=== PATIENT | male | born 1975 | race Caucasian/White ===

== ENCOUNTER 2017-01-19 07:20 | Inpatient (IN) | payer OTHER ==
[~2017-01-19] VITALS: Ht 185.4 cm; Wt 95.2 kg
--- NOTE | 2017-01-19 07:35 | NUR ---
DR ROGERS AT BEDSIDE FOR MSE.
--- NOTE | 2017-01-19 07:38 | NUR ---
PT PRESENTS TO ER WITH BILATERAL LOWER QUADRANT ABD PAIN THAT BEGAN LAST NIGHT NIGHT APPROX 2200. PT DENIES ANY OTHER SYMPTOMS AT THIS TIME. PT ALERT AND AWAKE, ORIENTED X 4, BREATHING EVEN AND UNLABORED. NO DISTRESS NOTED AT THIS TIME. CALL LIGHT PLACED WITHIN REACH.
--- NOTE | 2017-01-19 07:41 | NUR ---
LEAD ANDROID DEVELOPER AT BEDSIDE.
[2017-01-19 07:57] LABS: BASOPHIL % 0.3 % (0-2); PLATELET COUNT 197 x10^3mcL (130-400); RED CELL DISTRIBUTION WIDTH 12.9 % (11.5-14.5)
[2017-01-19 08:02] LABS: CALCIUM 8.8 mg/dL (8.5-10.1); CARBON DIOXIDE 26.7 mmol/L (21-32); CHLORIDE SERUM 103 mmol/L (98-107); CREATININE SERUM 1.2 mg/dL (0.7-1.3); GFR1 > 60 mL/min; GLUCOSE SERUM 95 mg/dL (74-106); POTASSIUM SERUM 3.8 mmol/L (3.5-5.1); SODIUM SERUM 138 mmol/L (136-145)
[2017-01-19 08:06] LABS: ALBUMIN 3.8 g/dL (3.4-5.0); ALKALINE PHOSPHATASE 97 U/L (46-116); ALT/SGPT 22 U/L (16-63); AMYLASE 80 U/L (25-115); AST/SGOT 20 U/L (15-37); BILIRUBIN TOTAL 0.67 mg/dL (0.20-1.00); LIPASE 110 IU/L (73-393); TOTAL PROTEIN, SERUM 7.6 g/dL (6.4-8.2)
--- NOTE | 2017-01-19 08:10 | NUR ---
PT GIVEN IV MEDS PER DR ROGERS ORDERS. PT EDUCATED ON MEDS AND VERBALIZES UNDERSTANDING OF TEACHING. PT DENIES ANY ALLERGIES TO MEDS. PT ALERT AND AWAKE, TALKING TO AND FRIEND AT BEDSIDE. BREATHING EVEN AND UNLABORED NO DISTRESS NOTED AT THIS TIME.
[2017-01-19 08:12] LABS: UA SPECIFIC GRAVITY 1.025 (1.005-1.035); microscopic required? YES; urine erythrocyte TRACE (NEGATIVE)
--- NOTE | 2017-01-19 08:15 | NUR ---
PT PICKED UP BY EMPLOYEE BENEFITS COORDINATOR [facility]IA [place]. NO DISTRESS NOTED AT THIS TIME.
--- NOTE | 2017-01-19 08:27 | NUR ---
PT BROUGHT BACK TO [facility] [place] BY [employer]. VISIBLE CHEST RISE WITH INHALATION. NO DISTRESS NOTED AT THIS TIME.
[2017-01-19] MEDS ORDERED: LIPI20 PO (08:44)
--- NOTE | 2017-01-19 09:02 | NUR ---
DR ROGERS AT BEDSIDE DISCUSSING PLAN OF CARE
--- NOTE | 2017-01-19 09:14 | NUR ---
PT GIVEN IV ANTIBIOTIC PER DR ROGERS ORDERS. PT EDUCATED ON MED AND VERBALIZES UNDERSTANDING OF MED. PT DENIES ANY ALLERGIES TO MED. PT ALERT AND AWAKE, BREATHING EVEN AND UNLABORED NO DISTRESS NOTED AT THIS TIME.
--- NOTE | 2017-01-19 09:36 | NUR ---
DAWSON MA CALLED AT EXT [phone]. FRANCESCA ANSWERED BUT CALL WAS DROPPED. AWAITING CALL BACK.
--- NOTE | 2017-01-19 09:44 | NUR ---
FRANCESCA EXT [phone] RETURNED CALL. REPORT GIVEN TO CONTINUE CARE.
[2017-01-19 10:24] LABS: T3 TOTAL 0.99 ng/mL
[2017-01-19 10:26] LABS: FREE T4 1.09 ng/dL (0.76-1.46); T4(THYROXINE) 8.4 ug/dL (4.7-13.3)
--- NOTE | 2017-01-19 10:40 | NUR ---
PT GIVEN MEDS PER DR ROGERS ORDERS. PT EDUCATED ON MEDS AND VERBALIZES UNDERSTANDING OF TEACHING. PT DENIES ANY ALLERGIES TO MED. PT ALERT AND AWAKE, ORIENTED X 4. PT TALKING TO AT BEDSIDE. NO DISTRESS NOTED AT THIS TIME.
--- NOTE | 2017-01-19 10:45 | NUR ---
FRANCESCA RN EXT [id number] CALLED TO UPDATE ON PT STATUS
[2017-01-19 11:04] VITALS: BP 128/69
--- NOTE | 2017-01-19 11:05 | NUR ---
ADMITTED PT FROM ED DX APPY. PT IS A/A/OX4 DENIES PROCTOR. RESP EVEN AND UNLABORED WITH CLEAR BS BILAT. PLACED ON TELE #10 SHOWING SB HR 58. DENIES ANY CP/PRESSURE AT THIS TIME. NO EDEMA NOTED WITH IV TO RAC INFUSING LEVAQUIN. ABD SOFT, TENDER TO TOUCH WITH ACTIVE BS X4. PAIN AT 6-7/10, DECREASING. VOIDING FREELY. AMBULATORY, WITH LIMITED ROM TO RT SHOULDER FROM PRIRO INJURY. ORIENTED TO ROOM AND CALL LIGHT SYSTEM. CALL LIGHT IN REACH. AT BEDSIDE.
--- NOTE | 2017-01-19 12:10 | NUR ---
PT C/O PAIN /10 MEDICATED WITH MORPHINE IVP ORDERED. WILL CONT TO MONITOR.
--- NOTE | 2017-01-19 12:25 | NUR ---
REPORT GIVEN TO GUSTAVO OSMAN IN OR MADE AWARE PT PREP FOR SX, CONSENTS NOT SIGNED PT HAS NOT SPOKE WITH SURGEON. PER OR NURSE PT WILL BE TAKEN DOWN TO OR HOLDING AREA AND WILL BE CONSENT THERE IF OK WITH PT. SPOKE WITH PT AGREABLE TO BE CONSENT IN OR DEPARTMENT. CHLROHEXIN WIPES GIVEN TO PT FOR PREOP PREP. WILL CONT TO MONITOR.
--- NOTE | 2017-01-19 12:42 | NUR ---
PT TAKEN DOWN TO OR FOR PROCEDURE. WILL CONT TO MONITOR.
--- NOTE | 2017-01-19 15:33 | NUR ---
PT BACK FROM OR S/P LAP APPY. PT A/A/OX4 REPORTS FEELING COMFORTABLE. DENIES ANY N/V AT THIS TIME. SX SITES X3 WITH DERMABOND IN PLACE. RESUMED IVF ORDERED. AT BEDSIDE. CALL LIGHT IN REACH NEEDS ATTENDED TO.
--- NOTE | 2017-01-19 23:30 | NUR ---
PT C/O ABD PAIN. GAVE PT MORPHINE IVP. PT TOLERATED IT WELL. WILL CONTINUE TO MONITOR.
--- NOTE | 2017-01-20 06:44 | NUR ---
PT QUIET AND RESTING. EXPRESS ABD DISCOMFORT AND DENIES NEED FOR PAIN MEDICATION THUS FAR. IV INTACT AND INFUSING ORDERED. WILL ENDORSE TO THE AM NURSE ACCORDINGLY.
[2017-01-20 06:49] VITALS: BP 108/54
[2017-01-20 07:00] LABS: BASOPHIL % 0.1 % (0-2); PLATELET COUNT 194 x10^3mcL (130-400)
--- NOTE | 2017-01-20 07:20 | NUR ---
RECEIVED PT IN BED A/A/OX4 DENIES PROCTOR. RESP EVEN AND UNLABORED WITH CLEAR BS BILAT, ENCOURAGE USE OF IS AT BEDSIDE. PT ABLE TO GIVE RETURN DEMONSTRATION. NSR ON TELE HR 74. ABD SOFT, TENDER TO TOUCH WITH ACTIVE BS X4, DENIES ANY N/V AT THIS TIME. C/O PAIN 6/10 TO SX SITES MEDCIATED WITH NORCO PO ORDERED, S/P LAP APPY POD1. SX SITES X3 WITH DERMADOND IN PLACE CDI. AMBULATORY, WITH LIMITED ROM TO RT SHOULDER FROM OLD INJURY. VOIDING FREELY. CALL LIGHT IN REACH NEEDS ATTENDED TO.
[2017-01-20 08:01] LABS: CALCIUM 8.4 mg/dL (8.5-10.1); CARBON DIOXIDE 28.8 mmol/L (21-32); CHLORIDE SERUM 102 mmol/L (98-107); CHOLESTEROL 194 mg/dL (<200); CHOLESTEROL/HDL RATIO 4.3; CREATININE SERUM 1.1 mg/dL (0.7-1.3); GFR1 > 60 mL/min; GLUCOSE SERUM 101 mg/dL (74-106); HDL CHOLESTEROL 45 mg/dL (40-60); MAGNESIUM 1.9 mg/dL (1.8-2.4); PHOSPHOROUS 3.2 mg/dL (2.5-4.9); POTASSIUM SERUM 4.3 mmol/L (3.5-5.1); SODIUM SERUM 138 mmol/L (136-145); TRIGLYCERIDES 59 mg/dL (<150)
--- NOTE | 2017-01-20 08:29 | NUR ---
PT ASSISTED WITH AMBULATION DOWN THE HALLWAY TOLERATED WELL. ENCOURAGE INCREASE IN ACTIVITY INCLUDING OOB TO CHAIR AFTER MEALS.
[2017-01-20 08:40] VITALS: BP 123/69
--- NOTE | 2017-01-20 11:30 | NUR ---
PT C/O PAIN TO LT SIDE ABD AT 6/10. MEDICATED WITH NORCO PO ORDERED. WILL CONT TO MONITOR.
[2017-01-20 12:00] VITALS: BP 119/76
--- NOTE | 2017-01-20 16:20 | NUR ---
PT C/O ABD PAIN 6/10 AFTER AMBULATING MEDICATED WITH NORCO PO ORDERED. WILL CONT TO MONITOR.
[2017-01-20 17:40] VITALS: BP 118/52
--- NOTE | 2017-01-20 18:20 | NUR ---
PT RESTING COMFORTABLY AT THIS TIME, WITH AT BEDSIDE. REPORTS IMPROVEMENT WITH PAIN. TOLERATIGN DIET WELL. PT HAS BEEN BURPING, BUT NO FLATUS. DENIES ANY N/V. CALL LIGHT IN REACH NEEDS ATTENDED TO.
--- NOTE | 2017-01-20 20:05 | NUR ---
PT. AWAKE, ALERT, ORIENTED X4. DENIES HEADACHE OR DIZZINESS. BREATH SOUNDS CLEAR THROUGHOUT LUNG MO, RESP. EVEN, UNLABORED. PT. ENCOURAGED TO TAKE DEEP BREATH. HE IS "GUARDING", NOT TAKING HIS BREATHS BECAUSE OF ABD. PAIN. PAIN LEVEL 9/10. PRN MORPHINE GIVEN. NO EDEMA NOTED TO EXTREMITIES. PEDAL PULSES STRONG ANGELITA. IVF INFUSING WELL, SITE WNL. FAMILY AT BEDSIDE. CALL LIGHT WITHIN REACH. WILL CONTINUE TO MONITOR.
--- NOTE | 2017-01-20 21:24 | NUR ---
PT. OOB, WALKING HALLS, DID 2 ROUNDS AROUND [place]. BACK TO BED AT THIS TIME.
[2017-01-20 21:51] VITALS: BP 124/67
--- NOTE | 2017-01-21 01:28 | NUR ---
PT. W/ EYES CLOSED, APPEARS TO BE SLEEPING. CALL LIGHT REMAINS WITHIN REACH.
[2017-01-21 05:11] LABS: BASOPHIL % 1.1 % (0-2); PLATELET COUNT 197 x10^3mcL (130-400); RED CELL DISTRIBUTION WIDTH 13.4 % (11.5-14.5)
[2017-01-21 05:17] LABS: CALCIUM 8.2 mg/dL (8.5-10.1); CARBON DIOXIDE 27.7 mmol/L (21-32); CHLORIDE SERUM 107 mmol/L (98-107); CREATININE SERUM 1.1 mg/dL (0.7-1.3); GFR1 > 60 mL/min; GLUCOSE SERUM 96 mg/dL (74-106); POTASSIUM SERUM 4.1 mmol/L (3.5-5.1); SODIUM SERUM 140 mmol/L (136-145)
--- NOTE | 2017-01-21 05:32 | NUR ---
PT. AWAKE AND WALKED TO BATHROOM AND BACK TO BED. PRN NORCO GIVEN FOR C/O ABD. PAIN, 7-01/11. DENIES NAUSEA. IVF INFUSING WELL. SITE WNL. CALL LIGHT PLACED WITHIN REACH.
[2017-01-21 05:38] VITALS: BP 110/66
--- NOTE | 2017-01-21 07:30 | NUR ---
RECEIVED PT IN BED A/A/OX4 DENIES PROCTOR. RESP EVEN AND UNLABORED WITH CLEAR BS BILAT. IS AT BEDSIDE, ENCOURAGE USE. DENIES ANY CP, NSR ON TELE. NO EDEMA NOTED WITH IVF NS AT 100ML/HR TO RAC. ABD SOFT, TENDER TO TOUCH TO SX SITES WITH +BS X4. DENIES ANY N/V OR PAIN AT THIS TIME. S/P LAP APPY POD2. SX SITES X3 WITH DERMABOND IN PLACE CDI. VOIDING FREELY. AMBULATORY. CALL LIGHT IN REACH NEEDS ATTENDED TO.
[2017-01-21 09:48] VITALS: BP 114/69; BP 118/67
--- NOTE | 2017-01-21 10:00 | NUR ---
PT RESTIGN COMFORTABLY DENIES ANY DISCOMFORT. STATED HE HAD BEEN MADE AWARE BY MD OF PLANNED D/C HOME TODAY. WILL CONT TO MONITOR.
--- NOTE | 2017-01-21 11:20 | NUR ---
PT REQUESTING TO SHOWER MESSAGE SENT TO DR. CAMILO TO REQUEST OK TO SHOWER.
--- NOTE | 2017-01-21 12:10 | NUR ---
PT REPORTED HAVING BM AT THIS TIME. CALL LIGHT IN REACH.
[2017-01-21 13:48] VITALS: BP 131/84
[2017-01-21 14:38] VITALS: BP 131/84
[2017-01-21] MEDS ORDERED: NORCO1 TA2 PO (16:02)
[2017-01-21] MEDS ORDERED: ONDANSETRON4 M3 PO (16:02)
[2017-01-21] MEDS ORDERED: IBUPROFEN400 MG PO (16:04)
[2017-01-21] MEDS ORDERED: GOOD SENSE OMEP20 MG PO (16:05)
[2017-01-21] MEDS ORDERED: COLACE100 MG PO (16:40)
--- NOTE | 2017-01-21 17:07 | NUR ---
PT/ PROVIDED WITH D/C HOME INSTRUCTIONS. GIVEN MEDICATION/PRESCRIPTION EDUCATION. MADE AWARE OF IMPORTANCE TO CALL PCP AND SURGEON TOMORROW AND SCHEDULE F/U APPT. PT GIVEN POST-OP CARE INSTRUCTIONS FOR SURGICAL SITED, INCLUDING NO LIFTING WEIGHT>10LBS, NO SWIMMING OR BATHING. PT/ VERBALIZED UNDERSTANDING OF INSTRUCTIONS. TELE AND IV D/C'D CATHETER INTACT. PT TRANSPORTED TO [facility] WITH ALL PERSONAL BELONGINGS IN HAND FREE OF ANY APPARENT DISTRESS.
== END 2017-01-21 17:07 | disposition home or self-care (01) | DRG 343 ==
LOC: ED 07:20 → DU 09:14
PROVIDERS: Emergency Medicine; Family Medicine; Surgery; ADMIT Family Medicine
PROC: 0DTJ4ZZ Resection of Appendix, Percutaneous Endoscopic Approach (ICD-10-PCS; principal; 2017-01-19 14:00)
DX: K35.80 Unspecified acute appendicitis (principal); E78.5 Hyperlipidemia, unspecified; Z88.8 Allergy status to other drugs, medicaments and biological substances; R31.9 Hematuria, unspecified
CPT/HCPCS: 84439; J1170; J1956; J2250; J2270; J2405; J3010; J3490; J7030; Q0092; Q9967